=== PATIENT | male | born 1990 | race Caucasian/White ===

== ENCOUNTER 2018-06-06 14:12 | Emergency (ER) | payer MEDICAID ==
[~2018-06-06] VITALS: Ht 182.9 cm; Wt 65.8 kg
--- NOTE | 2018-06-06 17:10 | NUR ---
DR Carrion at the bedside.
--- NOTE | 2018-06-06 17:57 | NUR ---
AWAITING XRAY RESULTS.
--- NOTE | 2018-06-06 18:49 | NUR ---
ANAHY TAPE APPLIED BY [facility] LVN. DC AND FOLLOW UP INSTRUCTIONS GIVEN AND EXPLAIND TO PATIENT WHO STATES HE UNDERSTANDS ALL INSTRUCTIONS.
== END 2018-06-06 18:53 | disposition home or self-care (01) ==
LOC: ER 14:15
DX: S93.505A Unspecified sprain of left lesser toe(s), initial encounter (principal); F17.200 Nicotine dependence, unspecified, uncomplicated; W18.30XA Fall on same level, unspecified, initial encounter; Y93.39 Activity, other involving climbing, rappelling and jumping off; Y92.89 Other specified places as the place of occurrence of the external cause; Y99.8 Other external cause status
CPT/HCPCS: 73630; A4663